=== PATIENT | male | born 1965 | race Caucasian/White ===

== ENCOUNTER → 2017-06-27 | Outpatient (CLI) | payer BC ==
[2017-06-27 09:34] LABS: Basophils % (A) 1 %; Eosinophils # (A) 0.1 k/uL (0-0.7); Eosinophils % (A) 2 %; HCT 48.7 % (39.0-53.0); HGB 16.9 gm/dL (13.0-17.5); Lymphocytes # (A) 1.4 k/uL (1.0-4.8); Lymphocytes % (A) 29 %; MCH 29.5 pg (25.0-35.0); MCHC 34.6 g/dL (31.0-37.0); MCV 85.3 fL (80.0-100.0); Mean Platelet Volume 6.6; Monocytes # (A) 0.3 k/uL (0-1.0); Monocytes % (A) 7 %; Neutrophils # (A) 2.8 k/uL (1.3-7.7); Neutrophils % (A) 60 %; Platelet Count 262 k/uL (150-450); RBC 5.71 m/uL (4.30-5.90); RDW 12.8 % (11.5-15.5); WBC 4.7 k/uL (3.8-10.6)
[2017-06-27 09:48] LABS: ALT 40 U/L (21-72); AST 24 U/L (17-59); Albumin 4.5 g/dL (3.5-5.0); Alkaline Phosphatase 70 U/L (38-126); Anion Gap 11 mmol/L; Blood Urea Nitrogen 15 mg/dL (9-20); Calcium 10.3 mg/dL (8.4-10.2); Carbon Dioxide 32 mmol/L (22-30); Chloride 103 mmol/L (98-107); Cholesterol 265 mg/dL (<200); Glucose 108 mg/dL (74-99); HDL Cholesterol 37 mg/dL (40-60); LDL Cholesterol,Calculated 194 mg/dL (0-99); Potassium 5.4 mmol/L (3.5-5.1); Sodium 146 mmol/L (137-145); Total Bilirubin 0.7 mg/dL (0.2-1.3); Total Protein 7.4 g/dL (6.3-8.2); Triglycerides 171 mg/dL (<150)
[2017-06-27 10:18] LABS: Prostate Specific Antigen 1.59 ng/mL (0.00-4.00)
== END | disposition home or self-care (01) ==
LOC: LABWHC1 09:00
PROVIDERS: ATTEND Nurse Practitioner Women's Health
DX: I10 Essential (primary) hypertension (principal)
CPT/HCPCS: 36415; 80053; 80061; 84153; 84443; 85025

== ENCOUNTER → 2021-02-09 | Outpatient (CLI) | payer BC ==
[2021-02-09 17:28] LABS: Basophils # (A) 0.05 X 10*3/uL (0.00-0.10); Basophils % (A) 0.8 %; Eosinophils # (A) 0.13 X 10*3/uL (0.04-0.35); Eosinophils % (A) 2.1 %; HCT 48.8 % (39.6-50.0); HGB 15.6 g/dL (13.0-17.0); Lymphocytes # (A) 1.31 X 10*3/uL (0.90-5.00); Lymphocytes % (A) 21.2 %; MCH 28.5 pg (27.0-32.0); MCV 89.2 fL (80.0-97.0); Mean Platelet Volume 9.9 fL (9.5-12.2); Monocytes # (A) 0.42 X 10*3/uL (0.20-1.00); Monocytes % (A) 6.8 %; Neutrophils # (A) 4.27 X 10*3/uL (1.80-7.70); Neutrophils % (A) 68.9 %; Platelet Count 266 X 10*3/uL (140-440); RBC 5.47 X 10*6/uL (4.40-5.60); RDW 12.7 % (11.5-14.5); WBC 6.19 X 10*3/uL (4.50-10.00)
[2021-02-09 18:30] LABS: ALT 41 U/L (10-49); AST 23 U/L (14-35); Albumin 4.7 g/dL (3.8-4.9); Albumin/Globulin Ratio 2.12 (1.60-3.17); Alkaline Phosphatase 71 U/L (41-126); BUN/Creat Ratio 16.59 Ratio (12.00-20.00); Blood Urea Nitrogen 15.2 mg/dL (9.0-27.0); Calcium 9.8 mg/dL (8.7-10.3); Carbon Dioxide 26.7 mmol/L (21.6-31.8); Chloride 104 mmol/L (96-109); Chol/HDL Ratio 6.92 Ratio; Globulin 2.2 g/dL (1.6-3.3); Glucose 98 mg/dL (70-110); LDL Cholesterol,Calculated 177.9 mg/dL (0.0-131.0); Non-African American GFR(CKD) 93.1 (60.0-200.0); Potassium 4.1 mmol/L (3.5-5.5); Sodium 142 mmol/L (135-145); Total Protein 6.8 g/dL (6.2-8.2)
== END | disposition home or self-care (01) ==
LOC: LABWHC1 10:02
PROVIDERS: ATTEND Nurse Practitioner Family
DX: Z00.00 Encounter for general adult medical examination without abnormal findings (principal); I10 Essential (primary) hypertension; E55.9 Vitamin D deficiency, unspecified; Z68.34 Body mass index [BMI] 34.0-34.9, adult
CPT/HCPCS: 36415; 80053; 80061; 82306; 84153; 84439; 84443; 85025

== ENCOUNTER 2023-12-17 18:01 | Emergency (ER) | payer BC ==
[2023-12-17 18:06] VITALS: TEMP 98
[2023-12-17 18:18] VITALS: PULSE 68
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
[2023-12-17] MEDS: CEPHALEXIN 500 MG CAP PO STA (18:43)
[2023-12-17] MEDS: CEPHALEXIN 500MG STARTER PACK 4 CAP BTL PO STA (18:44)
[2023-12-17] MEDS: DIPH,PERTUS(ACELL)TETVAC-LF 0.5 ML VIAL IM ONE (18:44)
[2023-12-17 18:56] VITALS: BP 138/90; RESP 16
== END 2023-12-17 18:56 | disposition home or self-care (01) ==
LOC: EC 18:01
CPT/HCPCS: 12002; 90471; 90715; 99282

== ENCOUNTER 2024-02-01 09:34 | Day surgery (SDC) | payer BC ==
[2024-02-01 09:52] VITALS: RESP 16; TEMP 97.1
[2024-02-01] MEDS: LACTATED RINGERS 1,000 ML IV SCH (09:58)
[2024-02-01] MEDS: LACTATED RINGERS 1,000 ML IV ONE (09:59)
[2024-02-01] MEDS ORDERED: PROPOFOL 10 MG/ML 20 ML VIAL IV ONE (10:37)
[2024-02-01] MEDS ORDERED: GLYCOPYRROLATE 0.2 MG/ML 2 ML VIAL ONE (10:37)
[2024-02-01 11:15] VITALS: BP 111/72; PULSE 75
--- NOTE | 2024-02-01 13:08 | P.OP ---
Date of Procedure: 02/01/24 Preoperative Diagnosis: +Cologuard Screening Test Postoperative Diagnosis: Normal Colonoscopy Procedure(s) Performed: Colonoscopy Anesthesia: other (Sedation) Surgeon: Calvin Arias Pathology: none sent Condition: stable Disposition: PACU Description of Procedure: After informed consent was obtained, the patient was placed in the left lateral position adequate sedation was given by anesthesia. Monitoring was provided throughout the entire procedure. Digital rectal exam was performed revealing normal sphincter tone and no external hemorrhoids. The colonoscope was inserted into rectum and advanced under direct visualization, without difficulty, to the cecum, the appendiceal orifice, and the ileocecal valve were identified. The quality of the preparation was good. The colonoscope was then withdrawn while carefully examining the mucosa. The colonic mucosa appeared normal with normal vascularity and haustral markings. No masses, polyps, AVM/s or diverticula were seen. On retroflexed view in the rectum, there were no internal hemorrhoids. The endoscope was removed and the procedure terminated. The patient tolerated the procedure well without complications.
== END 2024-02-01 11:27 | disposition home or self-care (01) ==
LOC: ORWHC2ENDO 09:34
PROVIDERS: ATTEND Surgery
DX: R19.5 Other fecal abnormalities (principal); I10 Essential (primary) hypertension; E78.5 Hyperlipidemia, unspecified; Z87.891 Personal history of nicotine dependence; Z79.1 Long term (current) use of non-steroidal anti-inflammatories (NSAID); Z79.899 Other long term (current) drug therapy; Z98.890 Other specified postprocedural states
CPT/HCPCS: 45378; J2704; J1596